=== PATIENT | female | born 1985 | race African-American/Black ===

== ENCOUNTER 2019-04-07 10:30 | Observation (INO) | payer SELFPAY ==
[2019-04-07] MEDS ORDERED: RINGERS SOLUTION,LACTATED 1,000 ML IV SCH (11:21)
[2019-04-07 11:29] VITALS: BP 116/61
[2019-04-07] MEDS ORDERED: ONDANSETRON HCL 4 MG/2 ML VIAL IVP ONE (11:30)
[2019-04-07] MEDS ORDERED: PREN-217 PO (11:33)
[2019-04-07] MEDS ORDERED: FERR-89 PO (11:33)
== END 2019-04-07 11:55 | disposition other institution (70) ==
LOC: 4S 10:30
PROVIDERS: ADMIT Obstetrics & Gynecology; ATTEND Obstetrics & Gynecology
DX: O26.893 Other specified pregnancy related conditions, third trimester (principal); O21.2 Late vomiting of pregnancy; R10.2 Pelvic and perineal pain; Z3A.31 31 weeks gestation of pregnancy
CPT/HCPCS: 59025; 96374; G0378; J7120